=== PATIENT | female | born 1965 | race Caucasian/White ===

== ENCOUNTER → 2016-06-24 | Outpatient (CLI) | payer OTHER ==
--- OUTSIDE RECORDS SUMMARY | 2016-06-24 09:51 | XMS REPORT | Continuity of Care Document ---
Author Author [facility] Organization [facility] Address Unknown Phone Unavailable Care Team Providers Care Vehicle Modification Technician Name Role Phone ANTOINE LOPEZ MD PCP Insurance Providers Payer Name Policy Number Subscriber Name Relationship [employer] [id number] George Anderson Self / Same As Patient Problems No known problems or medical conditions. Medications No known medications. Social History Social History Problem Response Recorded Date/Time Recent Foreign Travel No 06/10/2014 2:10pm Hospital Discharge Instructions No hospital discharge instructions. Plan of Care No plan of care. Functional Status No functional status results. Allergies, Adverse Reactions, Alerts No known allergies. Immunizations No immunization records. Vital Signs No known vital signs results. Results No known relevant diagnostic tests, laboratory data and/or discharge summary. Procedures No known history of procedures. Encounters Encounter Location Date/Time Discharged Recurring [facility] 07/26/14 2:59pm
--- NOTE | 2016-06-28 20:14 | Diagnostic Imaging Report ---
Digital mammogram bilateral screening. This study was compared to the prior exams of 08/30/2014 and 05/06/2011. At this time, there are no current complaints. The current study was also evaluated with a Computer Aided Detection (CAD) system. FINDINGS: The fibroglandular tissue in both breasts is dense. This does limit the sensitivity of this exam. When compared with the previous studies, there does not appear to have been any significant change. The innumerable microcalcifications scattered throughout both breasts seen on the prior study are again evident and no different. There is no primary or secondary sign of malignancy noted. IMPRESSION: 1. There is no evidence of malignancy. 2. The patient should have her annual bilateral screening mammogram on schedule in June 2017. ACR BI-RADS Category 1: Negative. Result letter will be mailed to the patient. Note: At least 10% of breast cancer is not imaged by mammography. Dictated by: Dictated on workstation # [id number]
== END ==
LOC: RAD 09:48
PROVIDERS: ATTEND Nurse Practitioner Family
DX: Z12.31 Encounter for screening mammogram for malignant neoplasm of breast (principal)

== ENCOUNTER → 2017-09-09 | Outpatient (CLI) | payer OTHER ==
--- NOTE | 2017-09-12 10:20 | Diagnostic Imaging Report ---
INDICATION: Routine screening. COMPARISON: 06/24/2016 and 08/30/2014. TECHNIQUE: Screening digital mammography was performed bilaterally with a Computer Aided Detection (CAD) system. FINDINGS: Both breasts are heterogeneously dense, limiting the sensitivity of mammography. Innumerable primarily punctate microcalcifications scattered throughout both breasts are again noted, limiting the sensitivity of mammography but are overall stable when compared with the prior exam. No new mass is identified. The axillae are unremarkable. IMPRESSION: No mammographic features suspicious for malignancy are identified. ACR BI-RADS Category 2: Benign findings. Result letter will be mailed to the patient. Note: At least 10% of breast cancer is not imaged by mammography. Dictated by: Dictated on workstation # [id number]
== END ==
LOC: RAD 14:33
PROVIDERS: ATTEND Nurse Practitioner Family
DX: Z12.31 Encounter for screening mammogram for malignant neoplasm of breast (principal)
CPT/HCPCS: 77067

== ENCOUNTER → 2018-12-01 | Outpatient (CLI) | payer OTHER | LOC: RAD 14:26 | PROVIDERS: ATTEND Nurse Practitioner Family | DX: Z12.31 Encounter for screening mammogram for malignant neoplasm of breast (principal) | CPT/HCPCS: 77067 ==

== ENCOUNTER → 2020-11-19 | Outpatient (CLI) | payer OTHER ==
--- NOTE | 2020-11-19 09:11 | Diagnostic Imaging Report ---
Indication: Routine screening. Comparison is made with prior mammogram 12/01/2018 and 09/09/2017. 2-D and 3-D bilateral screening mammography was performed with CAD. Both breasts are heterogeneously dense, limiting the sensitivity of mammography. There are scattered benign-appearing calcifications throughout both breasts. No mass or malignant appearing microcalcifications are seen. Axillae are unremarkable. IMPRESSION: BI-RADS Category 2 No mammographic features suspicious for malignancy are identified. ACR BI-RADS Category 2: Benign findings. Result letter will be mailed to the patient. Note: At least 10% of breast cancer is not imaged by mammography. Dictated by: Dictated on workstation # [id number]
== END ==
LOC: RAD 07:50
PROVIDERS: ATTEND Nurse Practitioner Family
DX: Z12.31 Encounter for screening mammogram for malignant neoplasm of breast (principal)
CPT/HCPCS: 77063; 77067

== ENCOUNTER → 2021-12-23 | Outpatient (CLI) | payer OTHER ==
--- NOTE | 2021-12-23 09:13 | Diagnostic Imaging Report ---
Indication: Routine screening. Comparison is made with prior mammogram from 11/19/2020 and 12/01/2018. 2-D and 3-D bilateral screening mammography was performed with CAD. CAD is utilized. The current study was also evaluated with a Computer Aided Detection (CAD) system. Both breasts are heterogeneously dense, limiting the sensitivity of mammography. The parenchymal pattern is stable. No mass or malignant-appearing microcalcifications are seen. There are benign calcifications scattered within both breasts. Axillae are unremarkable. IMPRESSION: BI-RADS Category 2 No mammographic features suspicious for malignancy are identified. ACR BI-RADS Category 2: Benign findings. Result letter will be mailed to the patient. Note: At least 10% of breast cancer is not imaged by mammography. Dictated by: Dictated on workstation # [id number]
== END ==
LOC: RAD 07:30
PROVIDERS: ATTEND Nurse Practitioner Family
DX: Z12.31 Encounter for screening mammogram for malignant neoplasm of breast (principal)
CPT/HCPCS: 77063; 77067

== ENCOUNTER 2023-01-16 16:24 | Emergency (ER) | payer OTHER ==
[~2023-01-16] VITALS: Ht 170.2 cm; Wt 122.5 kg
[2023-01-16] MEDS ORDERED: meTOprolol TARTRATE (IR) 50 MG TABLET PO ONE (16:45)
[2023-01-16] MEDS ORDERED: meTOprolol INJECTION 5 MG/5 ML VIAL IV ONE (16:45)
[2023-01-16] MEDS ORDERED: ASPIRIN 81 MG CHEWABLE TABLET PO ONE (16:45)
--- NOTE | 2023-01-16 16:54 | ED Cardiac General ---
History of Present Illness General Chief Complaint: Cardiac/General Problems Stated Complaint: BLOOD PRESSURE PROBLEMS Nursing Triage Note: PT AMB TO ED BY POV WITH C/O HYPERTENSION AT HOME, DOES HAVE HX OF AND TAKES MEDS. PT REPORTS BP 180S-200S SYSTOLIC APPLIQUER ZIGZAG. PT REPORTS DULL PAIN IN BACK AND TIGHTNESS IN NECK BEGINNING TUESDAY. DENIES CP. Source: patient Exam Limitations: no limitations History of Present Illness Date Seen by Provider: Jan 16, 2023 Time Seen by Provider: 16:36 Initial Comments Here with report of uncontrolled blood pressure today as well as neck fullness and pain and some back pain. She is quite anxious. She did take a double dose of her lisinopril 20 mg today in an effort to get her blood pressure better. She does have family history of cardiac disease in her brother. She has known hypertension but has never been uncontrolled to this state. She reports that her blood pressure was 180s to 200s today. Denies chest pain specifically or breathing problems although the neck fullness makes her feel like it is harder to breathe when she is laying back. 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 She is currently on steroid and anti-inflammatory treatment for right wrist sprain/pain. Denies dysuria or diarrhea. Denies nausea, vomiting, sweating or weakness but does admit to anxiousness. Timing/Duration: 24 hours, getting worse Severity: moderate Location: shoulder, other (Neck bilateral) Activities at Onset: emotional stress Prior CP/Workup: no prior cardiac workup Modifying Factors: improves with rest NTG SL APPLIQUER ZIGZAG: No ASA po APPLIQUER ZIGZAG: No Associated Systoms: No Cough, No Diaphoresis, No Fever/Chills, No Nausea/Vomiting, No Shortness of Air, No Weakness Allergies and Home Medications Allergies Coded Allergies: No Known Drug Allergies (Unverified , 01/16/23) Patient Home Medication List Home Medication List Reviewed: Yes Review of Systems Review of Systems Constitutional: see HPI; No chills, No fever EENTM: No Symptoms Reported Respiratory: Denies Cough, Denies Shortness of Air Cardiovascular: Denies Chest Pain, Denies Edema Gastrointestinal: Denies Abdominal Pain, Denies Nausea, Denies Vomiting Genitourinary: No Symptoms Reported Musculoskeletal: back pain, muscle pain, neck pain Skin: no symptoms reported Psychiatric/Neurological: Anxiety; Denies Headache All Other Systems Reviewed Negative Unless Noted: Yes Past Tngnbdd-Pxwpmr-Dbyovq Hx Patient Social History Tobacco Use?: No Use of E-Cig and/or Vaping dev: No Substance use?: No Alcohol Use?: No Pt feels they are or have been: No Immunizations Up To Date Influenza Vaccine Up-to-Date: No; Not Current First/Initial COVID19 Vaccinat: X2 Past Medical History Surgery/Hospitalization HX: HTN HYST, HIP REPLACEMENT Surgeries: Yes Hysterectomy, Orthopedic Respiratory: No Cardiac: Yes Hypertension Neurological: No Gastrointestinal: No Musculoskeletal: Yes Arthritis Endocrine: No Family Medical History Heart Disease, Hypertension Physical Exam Vital Signs Vital Signs - First Documented 01/16/23 16:32 Pulse 88 Resp 18 B/P (MAP) 210/122 (151) Pulse Ox 96 O2 Delivery Room Air Capillary Refill : Less Than 3 Seconds Height, Weight, BMI Height: '" Weight: lbs. oz. kg; 42.00 BMI Method: General Appearance: WD/WN, Anxious HEENT: PERRL/EOMI, Pharynx Normal Neck: Non Tender, Supple Respiratory: Lungs Clear, Normal Breath Sounds Cardiovascular: Regular Rate, Rhythm, No Murmur, Other (Only mildly tachycardic but improved with reassurance to normal rate in the 80s) Gastrointestinal: Non Tender, Soft Extremity: Normal Range of Motion, Non Tender Neurologic/Psychiatric: Alert, Oriented x3 Skin: Normal Color, Warm/Dry Progress/Results/Core Measures Results/Orders Lab Results Laboratory Tests Test 01/16/23 16:45 Range/Units White Blood Count 10.0 4.3-11.0 10^3/uL Red Blood Count 4.50 3.80-5.11 10^6/uL Hemoglobin 13.1 11.5-16.0 g/dL Hematocrit 39 35-52 % Mean Corpuscular Volume 88 80-99 fL Mean Corpuscular Hemoglobin 29 25-34 pg Mean Corpuscular Hemoglobin Concent 33 32-36 g/dL Red Cell Distribution Width 13.1 10.0-14.5 % Platelet Count 184 130-400 10^3/uL Mean Platelet Volume 10.5 9.0-12.2 fL Immature Granulocyte % (Auto) 1 % Neutrophils (%) (Auto) 52 42-75 % Lymphocytes (%) (Auto) 39 12-44 % Monocytes (%) (Auto) 6 0-12 % Eosinophils (%) (Auto) 2 0-10 % Basophils (%) (Auto) 1 0-10 % Neutrophils # (Auto) 5.2 1.8-7.8 10^3/uL Lymphocytes # (Auto) 3.9 1.0-4.0 10^3/uL Monocytes # (Auto) 0.6 0.0-1.0 10^3/uL Eosinophils # (Auto) 0.2 0.0-0.3 10^3/uL Basophils # (Auto) 0.1 0.0-0.1 10^3/uL Immature Granulocyte # (Auto) 0.1 0.0-0.1 10^3/uL Prothrombin Time 13.6 12.2-14.7 SEC INR Comment 1.0 0.8-1.4 Activated Partial Thromboplast Time 29 24-35 SEC Sodium Level 142 135-145 MMOL/L Potassium Level 3.4 L 3.6-5.0 MMOL/L Chloride Level 107 98-107 MMOL/L Carbon Dioxide Level 25 21-32 MMOL/L Anion Gap 10 5-14 MMOL/L Blood Urea Nitrogen 19 H 7-18 MG/DL Creatinine 0.84 0.60-1.30 MG/DL Estimat Glomerular Filtration Rate 82 BUN/Creatinine Ratio 23 Glucose Level 79 70-105 MG/DL Calcium Level 9.3 8.5-10.1 MG/DL Corrected Calcium 9.3 8.5-10.1 MG/DL Magnesium Level 2.1 1.6-2.4 MG/DL Total Bilirubin 0.8 0.1-1.0 MG/DL Aspartate Amino Transf (AST/SGOT) 23 5-34 U/L Alanine Aminotransferase (ALT/SGPT) 45 0-55 U/L Alkaline Phosphatase 66 40-136 U/L Myoglobin 32.5 10.0-92.0 NG/ML Troponin I < 0.028 <0.028 NG/ML Total Protein 7.7 6.4-8.2 GM/DL Albumin 4.0 3.2-4.5 GM/DL TSH [place] Testing 4.04 0.35-4.94 UIU/ML My Orders Orders - LILIAN MAR MD Ekg Tracing (01/16/23 16:32) Metoprolol Tartrate (Ir) Tab (Lopressor (01/16/23 16:45) Metoprolol Tartrate Injection (Lopressor (01/16/23 16:45) Cbc With Automated Diff (01/16/23 16:41) Magnesium (01/16/23 16:41) Chest 1 View, Ap/Pa Only (01/16/23 16:41) Ekg Tracing (01/16/23 16:41) Comprehensive Metabolic Panel (01/16/23 16:41) Myoglobin Serum (01/16/23 16:41) Protime With Inr (01/16/23 16:41) Partial Thromboplastin Time (01/16/23 16:41) O2 (01/16/23 16:41) Monitor-Rhythm Ecg Trace Only (01/16/23 16:41) Lipid Panel (01/17/23 06:00) Ed Iv/Invasive Line Start (01/16/23 16:41) Troponin I [place] (01/16/23 16:41) Aspirin Chewable Tablet (Aspirin Chewabl (01/16/23 16:45) Thyroid Analyzer (01/16/23 16:54) Medications Given in ED Current Medications Medications Dose Ordered Sig/Noemy Route Start Time Stop Time Status Last Admin Dose Admin Aspirin 324 mg ONCE ONCE PO 01/16/23 16:45 01/16/23 16:46 DC 01/16/23 16:49 324 MG Metoprolol Tartrate 5 mg ONCE ONCE IV 01/16/23 16:45 01/16/23 16:46 DC 01/16/23 16:49 5 MG Metoprolol Tartrate 50 mg ONCE ONCE PO 01/16/23 16:45 01/16/23 16:46 DC 01/16/23 16:49 50 MG Vital Signs/I&O 01/16/23 16:32 Pulse 88 Resp 18 B/P (MAP) 210/122 (151) Pulse Ox 96 O2 Delivery Room Air Blood Pressure Mean: 151 Progress Progress Note : Progress Note Seen and evaluated. IV, labs including CBC, CMP, coags, TSH, troponin and myoglobin ordered. Chest x-ray and EKG ordered. Metoprolol 5 mg IV and 50 mg p.o. ordered. Monitor patient. Differential diagnosis includes cardiac event, labile hypertension, medication effect, steroid, anxiety, electrolyte abnormality, thyroid dysfunction 1700: Chest x-ray reviewed by me and shows no obvious infiltrate on my inte rpretation with normal cardiac silhouette. 1730: CBC reviewed and is grossly normal. Coags are normal. CMP reviewed and patient has slightly low potassium but otherwise no acute findings. Troponin, myoglobin and thyroid studies are pending. Blood pressure currently 174/114. Monitor patient. 1750: Troponin and myoglobin are negative. Thyroid studies are normal. Overall she is feeling better and blood pressures maintaining in the 150s systolic range. I did educational guidance counselor her on follow-up with her doctor and with cardiology for recheck and further evaluation. We will initiate outpatient Toprol-XL 50 mg daily and she will monitor her blood pressure. I did let her know that this agent may get changed either in dosing or to a different agent depending on review from cardiology and her primary care doctor. Discharged home with return precautions. Patient verbalized understanding of instructions and agreement with plan. Overall she is feeling much better and has no chest pain. Initial ECG Impression Date: Jan 16, 2023 Initial ECG Impression Time: 16:44 Initial ECG Rate: 75 Initial ECG Rhythm: Normal Sinus Initial ECG Comparisson: No Previous ECG Available Comment Sinus rhythm with left axis deviation. No evidence of ST elevation [place]. Interpreted by me. Diagnostic Imaging Diagonstic Imaging: Xray Plain Films/CT/US/NM/MRI: chest Comments [facility] [place], [place] NAME: [facility] REC#: [id number] PT STATUS: REG ER : 1965 PHYSICIAN: LILIAN MAR MD ADMIT DATE: 01/16/23/ER Draft Date of Exam:01/16/23 CHEST 1 VIEW, AP/PA ONLY EXAM: CHEST 1 VIEW, AP/PA ONLY INDICATION: Chest pain. COMPARISON: None. FINDINGS: Normal heart size and central pulmonary vascularity. Mild atelectasis or infiltrate in the right lung base where there is also elevation of the right hemidiaphragm. Calcified granuloma in the right lung apex. No pleural effusion or pneumothorax. No acute . IMPRESSION: Elevation of the right hemidiaphragm and mild atelectasis in the right lung base, less likely infiltrate. Dictated on workstation # [id number] Dict: 01/16/235 Trans: 01/16/23 170 [facility] [id number] Interpreted by: TARIK MCCORMICK MD Electronically signed by: Departure Impression Primary Impression: Uncontrolled hypertension Disposition: 01 HOME, SELF-CARE Condition: Improved Departure-Patient Inst. Decision time for Depature: 17:54 Referrals: [facility]REJO [facility] MADHAVI PAK MD Patient Instructions: High Blood Pressure ED Add. Discharge Instructions: All discharge instructions reviewed with patient and/or family. Voiced understanding. Take medications as directed. Monitor your blood pressure daily. If your blood pressure is low or you are having difficulty with the medication, you may take 1/2 tablet daily instead of 1 tablet daily of the metoprolol. Record your blood pressures and take those to your doctor's office for recheck and further evaluation and for further management of your blood pressure. Given your family history of cardiac disease, following up with cardiology as indicated. Follow- up with one of the lens grinder listed or of your choosing. Call office for appointment. Return for chest pain, breathing problems, return of pain to your neck, weakness, numbness, sweating, vomiting, blood pressure that is over 180/120 despite medications or other concerns as needed. Scripts Metoprolol Succinate (Metoprolol Succinate) 50 Mg Tab.er.24h 50 MG PO DAILY for 30 Days, #30 TAB Prov: LILIAN MAR MD 01/16/23 Copy Copies To 1: SRI JENKINS MD, TIMOTHY D MD Jan 16, 2023 16:54
[2023-01-16 17:06] LABS: BASOPHILS # (AUTO) 0.1 10^3/uL (0.0-0.1); BASOPHILS % (AUTO) 1 % (0-10); EOSINOPHILS # (AUTO) 0.2 10^3/uL (0.0-0.3); EOSINOPHILS % (AUTO) 2 % (0-10); HEMATOCRIT 39 % (35-52); HEMOGLOBIN 13.1 g/dL (11.5-16.0); LYMPHOCYTES # (AUTO) 3.9 10^3/uL (1.0-4.0); LYMPHOCYTES % (AUTO) 39 % (12-44); MEAN CORPUSCULAR HEMOGLOBIN 29 pg (25-34); MEAN CORPUSCULAR HGB CONC 33 g/dL (32-36); MEAN CORPUSCULAR VOLUME 88 fL (80-99); MEAN PLATELET VOLUME 10.5 fL (9.0-12.2); MONOCYTES # (AUTO) 0.6 10^3/uL (0.0-1.0); MONOCYTES % (AUTO) 6 % (0-12); NEUTROPHILS # (AUTO) 5.2 10^3/uL (1.8-7.8); NEUTROPHILS % (AUTO) 52 % (42-75); PLATELET COUNT 184 10^3/uL (130-400)
--- NOTE | 2023-01-16 17:10 | Diagnostic Imaging Report ---
EXAM: CHEST 1 VIEW, AP/PA ONLY INDICATION: Chest pain. COMPARISON: None. FINDINGS: Normal heart size and central pulmonary vascularity. Mild atelectasis or infiltrate in the right lung base where there is also elevation of the right hemidiaphragm. Calcified granuloma in the right lung apex. No pleural effusion or pneumothorax. No acute osseous findings. IMPRESSION: Elevation of the right hemidiaphragm and mild atelectasis in the right lung base, less likely infiltrate. Dictated by: Dictated on workstation # [id number]
[2023-01-16 17:16] LABS: CHLORIDE 107 MMOL/L (98-107); POTASSIUM 3.4 MMOL/L (3.6-5.0); SODIUM 142 MMOL/L (135-145)
[2023-01-16 17:17] LABS: CALCIUM 9.3 MG/DL (8.5-10.1)
[2023-01-16 17:18] LABS: PROTHROMBIN TIME PATIENT 13.6 SEC (12.2-14.7)
[2023-01-16 17:19] LABS: GLUCOSE 79 MG/DL (70-105); TOTAL PROTEIN 7.7 GM/DL (6.4-8.2)
[2023-01-16 17:20] LABS: CARBON DIOXIDE 25 MMOL/L (21-32)
[2023-01-16 17:21] LABS: BILIRUBIN,TOTAL 0.8 MG/DL (0.1-1.0)
[2023-01-16 17:22] LABS: ALKALINE PHOSPHATASE 66 U/L (40-136); CREATININE SERUM 0.84 MG/DL (0.60-1.30); GFR ESTIMATED 82
[2023-01-16 17:23] LABS: BUN/CREATININE RATIO 23
[2023-01-16 17:25] LABS: ALANINE AMINOTRANSFERASE 45 U/L (0-55)
[2023-01-16 17:26] LABS: MAGNESIUM 2.1 MG/DL (1.6-2.4)
[2023-01-16 17:46] LABS: TSH (THYROID ANALYZER) 4.04 UIU/ML (0.35-4.94)
[2023-01-16] MEDS ORDERED: METO50TA7 PO (17:56)
[2023-01-16 18:24] VITALS: BP 164/104
== END 2023-01-16 18:24 | disposition home or self-care (01) ==
LOC: EDUNIT# 16:24 → ER 16:27
DX: I10 Essential (primary) hypertension (principal); M25.531 Pain in right wrist; Z79.52 Long term (current) use of systemic steroids; Z79.1 Long term (current) use of non-steroidal anti-inflammatories (NSAID); Z28.311 Partially vaccinated for COVID-19
CPT/HCPCS: 36415; 71045; 80053; 83735; 83874; 84443; 84484; 85025; 85610; 85730; 93005; 93041

== ENCOUNTER → 2023-02-21 | Outpatient (CLI) | payer OTHER ==
[~2023-02-21] VITALS: Ht 172 cm; Wt 110.0 kg
[~2023-02-21] MED LIST: CATHETER FLUSH 10 ML SYR IVP PRN; METO50TA7 PO
[2023-02-21 10:23] VITALS: BP 133/83
--- NOTE | 2023-02-21 17:26 | Cardiology Stress Test Report ---
Stress Test Report Date of Procedure/Referring: Date of Procedure: Feb 21, 2023 PCP Sri Salgado MD Admitting Physician Admitting Physician: Attending Physician: Yolanda Alatorre MD Indications: CP Baseline Heart Rate: 80 Baseline Blood Pressure: Blood Pressure Systolic: 133 Blood Pressure Diastolic: 83 Vital Signs Date Time Temp Pulse Resp B/P (MAP) Pulse Ox O2 Delivery O2 Flow Rate FiO2 02/21/23 10:23 80 133/83 (100) Baseline Vital Signs Vital Signs Date Time Temp Pulse Resp B/P (MAP) Pulse Ox O2 Delivery O2 Flow Rate FiO2 02/21/23 10:23 80 133/83 (100) Baseline EKG: Baseline EKG: NSR Summary: After explaining the procedure and details to the patient, she signed the consent and was brought to the stress nuclear laboratory. Patient exercised on standard Ismael protocol, EKG, heart rate and blood pressure were monitored continuously, resting and stress doses of radio tracer were injected, imaging was acquired and reviewed in the short axis, horizontal long axis and vertical long axis views Patient was able to exercise for a total of 4 minutes on Ismael protocol, METs 5.8 Maximum heart rate 180 Maximum blood pressure 206/92 Stress EKG, Minimal nondiagnostic changes Recovery EKG, Return to baseline TID: 1.19 SSS: 5 SDS: 4 EF: 67 Conclusion: Good exercise tolerance for 4 minutes on standard Ismael protocol 5.8 METS achieving 100% of maximal expected heart rate Appropriate heart rate response to exercise with hypertensive response to exer cise with peak blood pressure 206/92 return to baseline during recovery Nondiagnostic EKG changes with exercise return to baseline during recovery Breast attenuation with mild decrease uptake at the mid to apical inferior lateral wall with mild reversibility most probably due to extracardiac attenuation, overall there is no significant ischemia or infarction on SPECT images Normal left ventricular size, ejection fraction 67% Copy Copies To 1: SRI SALGADO MD, BASHAR J MD Feb 21, 2023 17:26
== END ==
LOC: CARD 08:10
PROVIDERS: ATTEND Internal Medicine Cardiovascular Disease
DX: I10 Essential (primary) hypertension (principal); I25.10 Atherosclerotic heart disease of native coronary artery without angina pectoris
CPT/HCPCS: 78452; 93017; A9502